=== PATIENT | female | born 1965 | race Caucasian/White ===

== ENCOUNTER 2020-05-01 20:50 | Emergency (ER) | payer BC ==
[~2020-05-01] VITALS: Ht 157.5 cm; Wt 81.6 kg
[2020-05-01 21:11] VITALS: Ht 157.5 cm; Wt 81.6 kg
[2020-05-01 22:26] LABS: BASOPHIL % 0.3 % (0-2); PLATELET COUNT 193 x10^3mcL (130-400)
[2020-05-01 22:47] LABS: CALCIUM 9.1 mg/dL (8.5-10.1); CARBON DIOXIDE 29.6 mmol/L (21-32); CHLORIDE SERUM 104 mmol/L (98-107); CREATININE SERUM 0.7 mg/dL (0.6-1.0); GFR1 > 60 mL/min; GLUCOSE SERUM 128 mg/dL (74-106); POTASSIUM SERUM 4.6 mmol/L (3.5-5.1); SODIUM SERUM 141 mmol/L (136-145)
[2020-05-02 00:10] VITALS: BP 118/76
== END 2020-05-02 00:52 | disposition home or self-care (01) ==
LOC: ED 20:50
PROVIDERS: Emergency Medicine
DX: I10 Essential (primary) hypertension (principal); J45.909 Unspecified asthma, uncomplicated; M79.7 Fibromyalgia; Z88.6 Allergy status to analgesic agent
CPT/HCPCS: J2765; Q0163